=== PATIENT | male | born 2000 | race Caucasian/White ===

== ENCOUNTER 2024-06-26 22:39 | Emergency (ER) | payer SELFPAY ==
[~2024-06-26] VITALS: Ht 175.3 cm; Wt 78.3 kg
[2024-06-26] MEDS: BACITRACIN TOP OINT 1 UD PKG TOP ONE (23:37)
[2024-06-26] MEDS: TETANUS-DIPTH-ACEL PERTUSSIS 0.5ML SYR Tdap IM ONE (23:39)
--- NOTE | 2024-06-26 23:41 | ED.PDOC ---
HPI Comments 24-year-old male complaining laceration to right index finger. Patient was playing virtual reality, had goggles on his head. Ceiling fan was on, patient had jumped up with his hand extended in his finger hit the ceiling fan. Bleeding controlled upon arrival last tetanus shot unknown Chief Complaint: Laceration Time Seen by MD: 23:15 Reviewed Notes: Nurses Notes Allergies: Coded Allergies: NO KNOWN ALLERGIES (Unverified , 06/26/24) Information Source: Patient Mode of Arrival: Ambulatory Complexity: Simple Laceration Length (cm): 2 Skin Type: Jagged Past Medical History PAST MEDICAL HISTORY: Denies Surgical History: Denies all surgeries Constitutional: denies: chills, diaphoresis, fatigue, fever, malaise, sweats, weakness, others EENTM: denies: blurred vision, double vision, ear bleeding, ear discharge, ear drainage, ear pain, ear ringing, eye pain, eye redness, hearing loss, mouth pain, mouth swelling, nasal discharge, nose bleeding, nose congestion, nose pain, photophobia, tearing, throat pain, throat swelling, voice changes, others Respiratory: denies: cough, hemoptysis, orthopnea, SOB at rest, shortness of breath, SOB with excertion, stridor, wheezing, others Cardiovascular: denies: chest pain, dizzy spells, diaphoresis, Dyspnea on exertion, edema, irregular heart beat, left arm pain, lightheadedness, palpitations, PND, syncope, others Gastrointestinal: denies: abdomen distended, abdominal pain, blood streaked bowels, constipated, diarrhea, dysphagia, difficulty swallowing, hematemesis, melena, nausea, poor appetite, poor fluid intake, rectal bleeding, rectal pain, vomiting, others Genitourinary: denies: burning, dysuria, flank pain, frequency, hematuria, incontinence, penile discharge, penile sore, pain, testicle pain, testicle swelling, urgency, others Musculoskeletal: denies: back pain, gout, joint pain, joint swelling, muscle pain, muscle stiffness, neck pain, others Integumetry: reports: laceration; denies: bruises, change in color, change in hair/nails, dryness, lesions, lumps, rash, wounds, others Allergic/Immunocompromised: denies: Difficulty Healing, Frequent Infections, Hives, Itching, others Hematologic/Lymphatic: denies: anemia, blood clots, easy bleeding, easy bruising, swollen glands, others Physical Exam General Appearance: No Apparent Distress, Normal HEENT: Normal ENT Inspection, Pharynx Normal, TMs Normal Neck: Full Range of Motion, Non-Tender, Normal, Normal Inspection Respiratory: Chest Non-Tender, Lungs Clear, No Accessory Muscle Use, No Respiratory Distress, Normal Breath Sounds Cardiovascular: No Edema, No JVD, No Murmur, No Gallop, Normal Peripheral Pulses, Regular Rate/Rhythm Breast Exam: Deferred Gastrointestinal: No Organomegaly, Non Tender, No Pulsatile Mass, Normal Bowel Sounds, Soft Genitalia: Deferred Pelvic: Deferred Rectal: Deferred Extremities: No calf tenderness, Normal capillary refill, Normal inspection, Normal range of motion, Non-tender, No pedal edema Musculoskeletal : Apperance: Normal Neurologic: Alert, 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 V-shaped flap.), Normal Color, Warm Lymphatic: No Adenopathy Was a procedure done? Was a procedure done?: Yes Sedation Sedation?: No Laceration Repair : Location Right index finger Length 2cm Anesthetic: Lidocaine Laceration Repair Prep: Saline Laceration Repair: Number of sutures (5), Size (5-0), Nylon, Bacitracin, Non-adherent gauze Informed consent obtained: Yes Risks, benefits, and alternati: Yes Differential diagnosis Suture Removal: Cellulitis Generic Laceration: Tendon Injury, Abrasion/Contusion, Laceration X-Ray, Labs, Meds, VS Vital Signs Date Time Temp Pulse Resp B/P (MAP) Pulse Ox O2 Delivery O2 Flow Rate FiO2 06/26/24 23:13 97.9 85 18 129/72 (91) 98 X-Ray, Labs, Meds, VS Comment Imaging: X-rays and CT scans were reviewed and interpreted by this provider, imaging shows no fractures and no pathological disease. Pending radiology review. Laboratory: Labs reviewed and interpreted by this provider. No significant abnormalities noted. Patient has prior medical visits reviewed. Med reconciliation performed Vital signs reviewed Time of 1ST Reevaluation: 23:41 Reevaluation 1ST: Improved Patient Education/Counseling: Diagnosis, Treatment, Need For Follow Up (Follow up in two days for wound recheck, follow up in 7-10 days for suture removal) Family Education/Counseling: Diagnosis, Treatment Departure 1 Departure Time of Disposition: 23:40 Impression: Primary Impression: Finger laceration Qualified Codes: S61.210A - Laceration without foreign body of right index finger without damage to nail, initial encounter Disposition: HOME / SELF CARE / HOMELESS Condition: Fair Additional Instructions: He was seen for laceration to right index finger today. Five sutures were placed without complications. He you must return in the next 7-10 days for suture removal. Continue to use clean the finger with soap and water daily and change dressing daily. If there are any signs of redness in his infection and fever ear returned to the emergency department for further evaluation. Discharged With: Self Critical Care Note Critical Care Time?: No Stability Stability form required: No Heart Score Heart Score: Heart Score Response (Comments) Value History N/A 0 EKG N/A 0 Age N/A 0 Risk Factors N/A 0 Troponin N/A 0 Total 0 DORYS MALAGONP Jun 26, 2024 23:41
[2024-06-27 01:00] VITALS: BP 129/72; PULSE 85; RESP 18; TEMP 97.9; O2SAT 98
== END 2024-06-27 01:25 | disposition home or self-care (01) ==
LOC: ER 22:39
DX: S61.210A Laceration without foreign body of right index finger without damage to nail, initial encounter (principal); W45.8XXA Other foreign body or object entering through skin, initial encounter; Y93.89 Activity, other specified; Y92.89 Other specified places as the place of occurrence of the external cause; Y99.8 Other external cause status
CPT/HCPCS: 12001; 90471; 90715

== ENCOUNTER 2024-07-04 12:36 | Emergency (ER) | payer MEDICAID, OTHER ==
[~2024-07-04] VITALS: Ht 175.3 cm; Wt 82.0 kg
[2024-07-04 14:11] VITALS: BP 123/70; PULSE 88; RESP 16; TEMP 97.8; O2SAT 96
--- NOTE | 2024-07-04 14:16 | ED.PDOC ---
History of Present Illness HPI Comments 24 year old presents for suture removal. no other complaint. Chief Complaint: Suture Removal Time Seen by MD: 12:57 Primary Care Provider: NONE Reviewed Notes: Nurses Notes Allergies: Coded Allergies: NO KNOWN ALLERGIES (Unverified , 06/26/24) Information Source: Patient Mode of Arrival: Ambulatory Past Medical History PAST MEDICAL HISTORY: Denies Surgical History: Denies all surgeries All Other Systems: Reviewed and Negative (per hpi) Physical Exam General Appearance: No Apparent Distress, Normal HEENT: Normal ENT Inspection, Pharynx Normal, TMs Normal Neck: Full Range of Motion, Non-Tender, Normal, Normal Inspection Respiratory: Chest Non-Tender, Lungs Clear, No Accessory Muscle Use, No Respiratory Distress, Normal Breath Sounds Cardiovascular: No Edema, No JVD, No Murmur, No Gallop, Normal Peripheral Pulses, Regular Rate/Rhythm Breast Exam: Deferred Gastrointestinal: No Organomegaly, Non Tender, No Pulsatile Mass, Normal Bowel Sounds, Soft Genitalia: Deferred Pelvic: Deferred Rectal: Deferred Extremities: No calf tenderness, Normal capillary refill, Normal inspection, Normal range of motion, Non-tender, No pedal edema Musculoskeletal : Apperance: Normal Neurologic: Alert, 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 Was a procedure done?: No Differential Dx Considerations may include: suture removal X-Ray, Labs, Meds, VS Vital Signs Date Time Temp Pulse Resp B/P (MAP) Pulse Ox O2 Delivery O2 Flow Rate FiO2 07/04/24 14:11 97.8 88 16 123/70 (87) 96 97.8 07/04/24 14:11 88 16 96 Room Air 07/04/24 12:47 97.8 88 16 123/70 (87) 96 X-Ray, Labs, Meds, VS Comment Suture removal procedure: Alcohol swab used to clean area thoroughly. Clean, dry, intact. No discharge seen. Education provided to keep area clean and dry. If gets soiled, use soap and water to clean. Watch out for signs and symptoms of infection including fever, chills, yellow or green discharge, increased pain, swelling etc. Time of 1ST Reevaluation: 14:15 Reevaluation 1ST: Improved Patient Education/Counseling: Diagnosis, Treatment Family Education/Counseling: Diagnosis, Treatment Departure 1 Departure Time of Disposition: 14:16 Impression: Primary Impression: Visit for suture removal Disposition: 01 HOME / SELF CARE / HOMELESS Condition: Stable Discharged With: Self Critical Care Note Critical Care Time?: No Stability Stability form required: No Heart Score Heart Score: Heart Score Response (Comments) Value History N/A 0 EKG N/A 0 Age N/A 0 Risk Factors N/A 0 Troponin N/A 0 Total 0 ALEXANDRE MARTELL NP Jul 04, 2024 14:16
== END 2024-07-04 14:16 | disposition home or self-care (01) ==
LOC: ER 12:36
DX: S61.210D Laceration without foreign body of right index finger without damage to nail, subsequent encounter (principal); Z48.02 Encounter for removal of sutures; X58.XXXD Exposure to other specified factors, subsequent encounter